=== PATIENT | female | born 1990 | race Caucasian/White ===

== ENCOUNTER 2018-04-03 10:27 | Emergency (ER) | payer SELFPAY ==
[~2018-04-03] VITALS: Ht 165.1 cm; Wt 80.5 kg
[2018-04-03 10:34] VITALS: BP 122/92
--- NOTE | 2018-04-03 10:40 | NUR ---
PT AMBULATES TO BED 2
--- NOTE | 2018-04-03 10:40 | NUR ---
PATIENT PRESENT TO ED FOR COMPLAINTS OF RIGHT FLANK PAIN. PATIENT STATES IT JUST STERTED SUDDENLY. RADIATES TO LOWER ABDOMEN. DENIES N/V/D; SKIN IS PINK/WARM/DRY; AAOX4 WITH EVEN AND STEADY GAIT; LUNGS CLEAR BL; HR EVEN AND REGULAR; PT DENIES ANY FEVER, CP, SOB, OR COUGH AT THIS TIME; PATIENT STATES PAIN OF 10/10 AT THIS TIME; VSS; PATIENT POSITIONED FOR COMFORT; HOB ELEVATED; BEDRAILS UP 12; BED DOWN. ER MD MADE AWARE OF PT STATUS.
[2018-04-03] MEDS ORDERED: IBUPROFEN 800 MG TAB PO ONE (10:50)
--- NOTE | 2018-04-03 12:00 | NUR ---
Patient discharged with v/s stable. Written and verbal after care instructions given and explained. Patient alert, oriented and verbalized understanding of instructions. Ambulatory with steady gait. All questions addressed prior to discharge. ID band removed. Patient advised to follow up with PMD. Rx of IBUPROFEN AND NORCO given. Patient educated on indication of medication including possible reaction and side effects. Opportunity to ask questions provided and answered.
[2018-04-03 12:03] VITALS: BP 122/92
[2018-04-03 12:55] LABS: APPEARANCE,URINE CLEAR (CLEAR); BILIRUBIN,URINE NEGATIVE (NEGATIVE); BLOOD, URINE NEGATIVE (NEGATIVE); COLOR,URINE YELLOW (YELLOW); LEUKOCYTE ESTERASE ,URINE NEGATIVE (NEGATIVE); NITRITE, URINE NEGATIVE (NEGATIVE); PH,URINE 7.5 (5.0-9.0); UGLUCOSE NEGATIVE (NEGATIVE)
[2018-04-03 13:29] LABS: RBC,URINE NONE SEEN /HPF (0-5); WBC,URINE 0-5 (RARE) /HPF (0-5)
== END 2018-04-03 12:00 | disposition home or self-care (01) ==
LOC: MED 10:27
DX: N20.0 Calculus of kidney (principal); Z88.0 Allergy status to penicillin
CPT/HCPCS: 81001; 81025; 99285

== ENCOUNTER 2021-08-18 07:58 | Emergency (ER) | payer SELFPAY ==
[~2021-08-18] VITALS: Ht 165.1 cm; Wt 83.9 kg
[2021-08-18 08:03] VITALS: BP 144/102
--- NOTE | 2021-08-18 08:16 | NUR ---
PATIENT AMBULATED TO BED 12.
[2021-08-18] MEDS ORDERED: KETOROLAC 15 MG/ML VIAL IVP ONE (08:20)
[2021-08-18] MEDS ORDERED: ONDANSETRON 4 MG/2 ML VIAL IVP ONE (08:20)
--- NOTE | 2021-08-18 08:21 | NUR ---
DR MANRIQUEZ AT BEDSIDE EVALUATING PT
--- NOTE | 2021-08-18 08:30 | NUR ---
31 Y/O FEMALE C/O LUQ ABDOMINAL PAIN RADIATING TO PELVIS AND TO L FLANK X1 WEEK WITH PAIN WORSENING LAST NIGHT. PT ALSO REPORTS NAUSEA/VOMITING WITH LAST EPISODE THIS MORNING. DENIES NAUSEA AT THIS TIME. PT DESCRIBES PAIN CRAMPING/SHARP AND REPORTS TAKING IBUPROFEN THIS MORNING. PT DENIES DYSURIA, FEVER, CHILLS. PT A/O X4 WITH EVEN AND UNLABORED RESPIRATIONS. PMH: KIDNEY STONES AND ULCERATIVE COLITIS ALLERGIES:PCN
--- NOTE | 2021-08-18 08:39 | NUR ---
PT TAKEN TO RAD VIA W/C
--- NOTE | 2021-08-18 08:57 | NUR ---
PT BACK FROM RAD
[2021-08-18 09:38] LABS: BASOPHILS # (AUTO) 0.2 K/uL (0.00-0.22); BASOPHILS % (AUTO) 1.1 % (0.0-2.0); EOSINOPHILS % (AUTO) 0.2 % (0.0-4.0); HEMATOCRIT 39.5 % (36-48); HEMOGLOBIN 13.2 g/dL (12.0-16.0); LYMPHOCYTES # (AUTO) 0.8 K/uL (2.5-16.5); LYMPHOCYTES % (AUTO) 5.4 % (20.5-51.1); MEAN CORPUSCULAR HEMOGLOBIN 29 pg (27-31); MEAN CORPUSCULAR HGB CONC 34 g/dL (33-37); MEAN CORPUSCULAR VOLUME 85.9 fL (80-94); MONOCYTES # (AUTO) 0.7 K/uL (0.8-1.0); MONOCYTES % (AUTO) 4.9 % (1.7-9.3); NEUTROPHILS # (AUTO) 12.7 K/uL (1.8-7.7); NEUTROPHILS % (AUTO) 88.4 % (42.2-75.2); PLATELET COUNT (AUTO) 305 K/uL (140-450); RED CELL DISTRIBUTION WIDTH 12.7 % (11.6-13.7); WHITE BLOOD COUNT (AUTO) 14.4 K/uL (4.8-10.8)
[2021-08-18 09:48] LABS: ALBUMIN 4.5 g/dL (3.4-5.0); ANION GAP 15.1 (8-16); CARBON DIOXIDE 26.6 mmol/L (21-32); CREATININE 1.2 mg/dL (0.6-1.3); POTASSIUM 3.7 mmol/L (3.5-5.1); TOTAL BILIRUBIN 0.6 mg/dL (0.0-1.0)
[2021-08-18 10:16] LABS: BILIRUBIN,URINE NEGATIVE (NEGATIVE); BLOOD, URINE TRACE-I (NEGATIVE); COLOR,URINE YELLOW (YELLOW); LEUKOCYTE ESTERASE ,URINE NEGATIVE (NEGATIVE); NITRITE, URINE NEGATIVE (NEGATIVE); UGLUCOSE NEGATIVE (NEGATIVE)
[2021-08-18 10:27] LABS: APPEARANCE,URINE SLIGHTLY HAZY (CLEAR); RBC,URINE 0-5 /HPF (0-5); WBC,URINE 0-5 /HPF (0-5)
[2021-08-18] MEDS ORDERED: ACET-8386 PO (10:38)
[2021-08-18] MEDS ORDERED: TAMS0.4C96 PO (10:38)
[2021-08-18] MEDS ORDERED: ONDA-24 SL (10:38)
[2021-08-18] MEDS ORDERED: FAMO-90 PO (10:38)
--- NOTE | 2021-08-18 11:00 | NUR ---
Patient discharged with v/s stable. Written and verbal after care instructions ABOUT RENAL COLIC given and explained. Patient alert, oriented and verbalized understanding of instructions. Ambulatory with steady gait. All questions addressed prior to discharge. ID band removed. Patient advised to follow up with PMD. Rx of NORCO 5-325, PEPCIDE, ZOFRAN, AND FLOMAX given. Patient educated on indication of medication including possible reaction and side effects. Opportunity to ask questions provided and answered.
[2021-08-18 11:04] VITALS: BP 117/77
== END 2021-08-18 11:00 | disposition home or self-care (01) ==
LOC: MED 07:58
DX: N20.0 Calculus of kidney (principal); R11.2 Nausea with vomiting, unspecified; Z90.49 Acquired absence of other specified parts of digestive tract
CPT/HCPCS: 36415; 74022; 80053; 81001; 81025; 83690; 85025; 87086; 96374; 96375; 99284; J1885; J2405